=== PATIENT | female | born 1930 | race Caucasian/White ===

== ENCOUNTER 2017-08-02 14:31 | Inpatient (IN) | payer MEDICARE, OTHER ==
[~2017-08-02] VITALS: Ht 154.9 cm; Wt 53.5 kg
--- NOTE | 2017-08-02 14:40 | NUR ---
[id number] FROM HOME FOR ABD PAIN W/ NAUSEA X 0900AM. PATIENT RECEIBED AWAKE AND ALERT. APPEARS IN NO DISTRESS. RESPIRATION EVEN AND UNLABORED. SKIN IS WARM TO TOUCH AND NON DIAPHORETIC. AFEBRILE. GOWNED PT AND PLACED ON TELE MONITOR.
[2017-08-02] MEDS ORDERED: IV NS 0.9% 1,000 ML BAG IV ONE (15:00)
[2017-08-02 15:10] LABS: BASOPHILS # (AUTO) 0.1 /CMM (0.0-0.2); BASOPHILS % (AUTO) 0.9 % (0.0-2.0); EOSINOPHILS # (AUTO) 0.1 /CMM (0.0-0.7); EOSINOPHILS % (AUTO) 0.9 % (0.0-6.0); HEMATOCRIT 34 % (33-45); HEMOGLOBIN 11.7 g/dL (11.5-14.8); LYMPHOCYTES # (AUTO) 1.4 /CMM (0.8-4.8); MEAN CORPUSCULAR HEMOGLOBIN 30 PG (26.0-33.0); MEAN CORPUSCULAR HGB CONC 35 g/dl (31.0-36.0); MEAN CORPUSCULAR VOLUME 85 fL (82-100); MONOCYTES # (AUTO) 0.4 /CMM (0.1-1.30); NEUTROPHILS # (AUTO) 5.2 /CMM (1.8-8.9); NEUTROPHILS % (AUTO) 73.2 % (43.0-81.0); PLATELET COUNT (AUTO) 384 /CMM (150-450); RDW COEFFICIENT OF VARIATION 13.3 (11.5-15.0); RED BLOOD CELL COUNT(AUTO) 3.96 MIL/uL (4.0-5.2); WHITE BLOOD COUNT (AUTO) 7.2 K/uL (4.3-11.0)
[2017-08-02 15:20] LABS: CALCIUM, SERUM 9.5 mg/dL (8.5-10.1); CARBON DIOXIDE 26 mmol/L (21-32); CHLORIDE 103 mmol/L (98-107); CREATININE 1.3 mg/dL (0.6-1.3); GLUCOSE 128 mg/dL (74-106); POTASSIUM 4.4 mmol/L (3.5-5.1); SODIUM SERUM 136 mmol/L (136-145); UREA NITROGEN, BLOOD 22 mg/dL (7-18)
[2017-08-02 15:23] LABS: INR 0.99 (0.85-1.15)
[2017-08-02 15:26] LABS: ALANINE AMINOTRANSFERASE 17 U/L (12-78); ALBUMIN 3.2 g/dL (3.4-5.0); ALKALINE PHOSPHATASE 108 U/L (46-116); ASPARTATE AMINOTRANSFERASE 20 U/L (15-37); BILIRUBIN,DIRECT 0.1 mg/dL (0.0-0.2); BILIRUBIN,TOTAL 0.3 mg/dL (0.2-1.0)
[2017-08-02 15:27] LABS: TROPONIN I < 0.017 ng/mL (0.00-0.056)
[2017-08-02] MEDS ORDERED: TRAV5DRO EACHEYE (16:07)
[2017-08-02] MEDS ORDERED: DORZ10DR8 EACHEYE (16:07)
[2017-08-02] MEDS ORDERED: ATOR20TA PO (16:07)
[2017-08-02] MEDS ORDERED: AMLO10TA2 PO (16:07)
[2017-08-02] MEDS ORDERED: LISI10TA5 PO (16:07)
--- NOTE | 2017-08-02 17:19 | NUR ---
PAGED GRINDER DRESSER PANEL
[2017-08-02 17:27] LABS: APPEARANCE,URINE Slightly Cloudy (CLEAR); BILIRUBIN,URINE Negative (NEGATIVE); BLOOD, URINE Negative Ery/uL (NEGATIVE); COLOR,URINE Yellow (YELLOW); KETONES,URINE Negative (NEGATIVE); LEUKOCYTE ESTERASE ,URINE Small (NEGATIVE); NITRITE, URINE Negative (NEGATIVE); PH,URINE 5.5 (5.0-8.0); PROTEIN,URINE Negative (NEGATIVE); UGLUCOSE Negative (NEGATIVE); UROBILINOGEN,URINE 0.2 EU/dL (0.2)
--- NOTE | 2017-08-02 17:41 | NUR ---
PATIENT AFEBRILE. NO CHILLS NOTED. VSS
[2017-08-02] MEDS ORDERED: ALBUTEROL FS 2.5 MG/0.5 ML VIAL.NEB NEB PRN (18:00)
[2017-08-02] MEDS ORDERED: MAGNESIUM HYDROXIDE 30 ML UDC PO PRN (18:00)
[2017-08-02] MEDS ORDERED: Z GUARD REMEDY 2 OZ OINT TP PRN (18:00)
[2017-08-02] MEDS ORDERED: ZOLPIDEM TARTRATE 5 MG TABLET PO PRN (18:00)
[2017-08-02] MEDS ORDERED: HYDROCODONE/APAP 5/325MG 1 EACH TABLET PO PRN (18:00)
[2017-08-02] MEDS ORDERED: MAG HYDROX/AL HYDROX/SIMETH 30 ML UDC PO PRN (18:00)
[2017-08-02] MEDS ORDERED: ACETAMINOPHEN 325 MG TABLET PO PRN (18:00)
[2017-08-02] MEDS ORDERED: ONDANSETRON HCL/PF 4 MG/2 ML VIAL IVP PRN (18:00)
--- NOTE | 2017-08-02 18:15 | NUR ---
TELE ADMIT FROM ER AFTER REPORT RECEIVED FROM GRANT GARCIA. PATIENT ORIENTED TO PRIMARY RN, UNIT, ROOM, BED, AND UNIT POLICIES REGARDING PATIENT CARE AND VISITING HOURS. PATIENT NOW ON CONTINUOUS TELEMETRY MONITORING. READING ON ARRIVAL IS SR 91. PATIENT WEIGHED BY BEDSCALE AND ENCOURAGED TO CALL IF THEY NEED SOMETHING. ALL QUESTIONS AND CONCERNS ADDRESSED. PATIENT VERBALIZED UNDERSTANDING.
--- NOTE | 2017-08-02 19:30 | NUR ---
SUPERVISOR LAMP SHADES NOTES, PATIENT ALER AND ORIENTED, ABLE TO VERBALIZED NEEDS AND CONCERNS, BREATHING EVEN AND UNLABORED, NO S/S OF ANY PAIN OR DISCOMFORT AT THIS TIME, DAUGHTER AND GRANDDAUGHTER AT BEDSIDE AT THIS TIME, PIV NOTED IN LEFT AC IVF INFUSING WELL AND PATIENT TOLERATED WELL, NO S/S OF ANY INFILTRATION OR ABNORMALITY AT THIS TIME, BED LOCKED AND IN LOWEST POSITION, CALL LIGHT W/I REACH, USES RESTROOM FRO ELIMINATION, ASSISTANCE PROVIDED AT ALL TIME. WILL CONTINUE TO MONITOR CLOSELY.
--- NOTE | 2017-08-02 19:35 | NUR ---
CHANGE OF SHIFT REPORT PT RESTING COMFORTABLY IN BED. NO S/S OR C/O PAIN OR DISTRESS NOTED. SIDE RAILS UP X2, CALL LIGHT LEFT WITHIN REACH. PT KEPT CLEAN DRY, AND COMFORTABLE. NO SIGNIFICANT CHANGES SINCE ADMISSION. REPORT GIVEN TO DIAMOND GARCIA.
[2017-08-02 20:00] VITALS: BP 108/50
[2017-08-02] MEDS: ATORVASTATIN 10 MG TABLET PO SCH (21:50)
[2017-08-02] MEDS: LATANOPROST EYE DROP 0.005% 2.5 ML BOTTLE EACHEYE SCH (21:51)
[2017-08-02] MEDS: MECLIZINE HCL 12.5 MG TABLET PO SCH (21:54)
[2017-08-02 22:10] LABS: BACTERIA,URINE Moderate /HPF (None Seen); RBC,URINE 0-2 /HPF (0-2); SQUAMOUS EPITHELIAL CELL,UR Few /HPF (None Seen)
[2017-08-03] VITALS: BP 105/38
[2017-08-03 04:00] VITALS: BP 107/51
[2017-08-03] MEDS: MECLIZINE HCL 12.5 MG TABLET PO SCH ×3 (05:18→21:15)
--- NOTE | 2017-08-03 06:40 | NUR ---
HYDRO STATION SUPERVISOR CLOSING NOTES, PATIENT AWAKE, ALERT AND ORIENTED ABLE TO VERBALIZED CONCERNS AND NEEDS, BREATHING EVEN AND UNLABORED, NO S/S OF DISCOMFORT OF ANY PAIN AT THIS TIME, PIV LINE IN RIGHT HAND, INTACT AND PATENT, IVF INFUSING WELL AND PATIWENT TOLERATED WELL, NO S/S OF INFILTRATION, INDEPENDENT WITH REPOSITION, WILL ENDORSE CONTINUITY OF CARE TO NEXT NURSE.
--- NOTE | 2017-08-03 07:25 | NUR ---
ECHOCARDIOLOGIST NOTE: RECEIVED PATIENT IN BED, AWAKE, ALERT AND VERBALLY RESPONSIVE. DENIED PAIN. RESPIRATION EVEN AND UNLABORED SATURATING WELL 96% ON RA. ON TUBE COVERER SR= 68. (R) HAND IV LINE PATENT AND INTACT INFUSING W/ NS 0.9% @75CC/HR. AWARE ABOUT PATIENT'S SENSITIVITY WITH TAPES. DENIED FEELING DIZZY AT THIS TIME. BED ALARM AND LOCKED AT ALL TIMES. CALL LIGHT WITHIN REACH. NEEDS ANTICIPATED.
[2017-08-03 07:32] LABS: BASOPHILS # (AUTO) 0.1 /CMM (0.0-0.2); BASOPHILS % (AUTO) 0.8 % (0.0-2.0); EOSINOPHILS # (AUTO) 0.1 /CMM (0.0-0.7); EOSINOPHILS % (AUTO) 1.3 % (0.0-6.0); HEMATOCRIT 31 % (33-45); HEMOGLOBIN 10.5 g/dL (11.5-14.8); LYMPHOCYTES % (AUTO) 14.4 % (20.0-44.0); MEAN CORPUSCULAR HEMOGLOBIN 29 PG (26.0-33.0); MEAN CORPUSCULAR HGB CONC 34 g/dl (31.0-36.0); MEAN CORPUSCULAR VOLUME 86 fL (82-100); MONOCYTES # (AUTO) 0.5 /CMM (0.1-1.30); MONOCYTES % (AUTO) 7.2 % (2.0-12.0); NEUTROPHILS # (AUTO) 5.2 /CMM (1.8-8.9); NEUTROPHILS % (AUTO) 76.3 % (43.0-81.0); PLATELET COUNT (AUTO) 296 /CMM (150-450); RDW COEFFICIENT OF VARIATION 13.9 (11.5-15.0); RED BLOOD CELL COUNT(AUTO) 3.57 MIL/uL (4.0-5.2); WHITE BLOOD COUNT (AUTO) 6.8 K/uL (4.3-11.0)
[2017-08-03 07:47] LABS: CHOLESTEROL 112 mg/dL (<200); CREATINE KINASE MB 0.8 ng/mL (0-3.6); HDL CHOLESTEROL 51 mg/dL (40-60); LDL 50 mg/dL (0-99); THYROID STIMULATING HORMONE 2.346 uIU/mL (0.358-3.74); TRIGLYCERIDES 85 mg/dL (30-150)
[2017-08-03 07:52] LABS: ALANINE AMINOTRANSFERASE 20 U/L (12-78); ALBUMIN 2.8 g/dL (3.4-5.0); ALKALINE PHOSPHATASE 96 U/L (46-116); ASPARTATE AMINOTRANSFERASE 25 U/L (15-37); BILIRUBIN,TOTAL 0.4 mg/dL (0.2-1.0); CARBON DIOXIDE 25 mmol/L (21-32); CHLORIDE 111 mmol/L (98-107); CREATININE 0.9 mg/dL (0.6-1.3); GLUCOSE 94 mg/dL (74-106); MAGNESIUM 1.7 mg/dL (1.8-2.4); PHOSPHORUS 3.3 mg/dL (2.5-4.9); POTASSIUM 4.8 mmol/L (3.5-5.1); SODIUM SERUM 143 mmol/L (136-145); TOTAL PROTEIN, SERUM 6.4 g/dL (6.4-8.2); UREA NITROGEN, BLOOD 15 mg/dL (7-18)
[2017-08-03 07:56] LABS: IRON, SERUM 61 ug/dl (50-175); TOTAL IRON BINDING CAPACITY 235 ug/dl (250-450)
[2017-08-03 07:58] LABS: INR 1.02 (0.87-1.13)
[2017-08-03 08:00] VITALS: BP 118/47
[2017-08-03] MEDS: PANTOPRAZOLE 40 MG TABLET.DR PO SCH (08:25)
[2017-08-03] MEDS: DORZOLAMIDE OPTH 2% 10 ML BOTTLE EACHEYE SCH ×2 (08:25→17:38)
[2017-08-03] MEDS: AMLODIPINE BESYLATE 10 MG TABLET PO SCH (08:39)
[2017-08-03] MEDS: LISINOPRIL (10MG) 10 MG TABLET PO SCH (09:52)
[2017-08-03] MEDS: Magnesium 1GM/D5W 100ML PREMIX 100 ML IV SCH ×2 (10:32→11:51)
[2017-08-03 12:00] VITALS: BP 111/41
[2017-08-03] MEDS: IV NS 0.9% 1,000 ML IV PRN (12:58)
[2017-08-03] MEDS ORDERED: Magnesium 1GM/D5W 100ML PREMIX 100 ML IV SCH (16:00)
[2017-08-03 20:00] VITALS: BP 127/54
[2017-08-03] MEDS: ATORVASTATIN 10 MG TABLET PO SCH (21:16)
[2017-08-03] MEDS: LATANOPROST EYE DROP 0.005% 2.5 ML BOTTLE EACHEYE SCH (21:16)
[2017-08-04 04:00] VITALS: BP 118/56
[2017-08-04] MEDS: MECLIZINE HCL 12.5 MG TABLET PO SCH ×3 (05:30→21:52)
[2017-08-04] MEDS: IV NS 0.9% 1,000 ML IV PRN (06:03)
[2017-08-04 06:23] LABS: CALCIUM, SERUM 8.7 mg/dL (8.5-10.1); CARBON DIOXIDE 26 mmol/L (21-32); CHLORIDE 108 mmol/L (98-107); CREATININE 0.8 mg/dL (0.6-1.3); GLUCOSE 87 mg/dL (74-106); PHOSPHORUS 3.4 mg/dL (2.5-4.9); POTASSIUM 4.9 mmol/L (3.5-5.1); SODIUM SERUM 141 mmol/L (136-145); UREA NITROGEN, BLOOD 11 mg/dL (7-18)
[2017-08-04 06:24] LABS: BASOPHILS % (AUTO) 1.1 % (0.0-2.0); EOSINOPHILS # (AUTO) 0.1 /CMM (0.0-0.7); EOSINOPHILS % (AUTO) 3.4 % (0.0-6.0); HEMATOCRIT 30 % (33-45); HEMOGLOBIN 10.1 g/dL (11.5-14.8); LYMPHOCYTES # (AUTO) 1.2 /CMM (0.8-4.8); LYMPHOCYTES % (AUTO) 30.4 % (20.0-44.0); MEAN CORPUSCULAR HEMOGLOBIN 29 PG (26.0-33.0); MEAN CORPUSCULAR HGB CONC 34 g/dl (31.0-36.0); MEAN CORPUSCULAR VOLUME 86 fL (82-100); MONOCYTES # (AUTO) 0.5 /CMM (0.1-1.30); MONOCYTES % (AUTO) 11.4 % (2.0-12.0); NEUTROPHILS # (AUTO) 2.2 /CMM (1.8-8.9); NEUTROPHILS % (AUTO) 53.7 % (43.0-81.0); PLATELET COUNT (AUTO) 278 /CMM (150-450); RDW COEFFICIENT OF VARIATION 14.4 (11.5-15.0); RED BLOOD CELL COUNT(AUTO) 3.43 MIL/uL (4.0-5.2)
[2017-08-04 07:06] VITALS: BP 105/48
--- NOTE | 2017-08-04 07:35 | NUR ---
RN MED-SURG NOTE: RECEIVED PATIENT IN BED, AWAKE, ALERT AND ABLE TO MAKE NEEDS KNOWN. NO SOB. SATURATING WELL AT RA 97%. (L) FA IV LINE NOTED INTACT AND PATENT INFUSING NS @75CC/HR. CALL LIGHT WITHIN REACH. NEEDS ANTICIPATED.
[2017-08-04 08:00] VITALS: BP 117/51
[2017-08-04] MEDS: PANTOPRAZOLE 40 MG TABLET.DR PO SCH (08:29)
[2017-08-04] MEDS: DORZOLAMIDE OPTH 2% 10 ML BOTTLE EACHEYE SCH ×2 (09:12→17:05)
[2017-08-04] MEDS: LISINOPRIL (10MG) 10 MG TABLET PO SCH (09:12)
[2017-08-04] MEDS: AMLODIPINE BESYLATE 10 MG TABLET PO SCH (09:13)
--- NOTE | 2017-08-04 09:18 | NUR ---
RN MED-SURG NOTE: SEEN BY DR. MCLEAN (NEUROLOGIST) AND HAD A BEDSIDE INTERVIEW W/ THE PATIENT. PATIENT STATED FEELING SO MUCH BETTER AND NO DIZZINESS. MD WITH NO NEW ORDER AT THIS TIME.
--- NOTE | 2017-08-04 09:44 | NUR ---
RN MED-SURG NOTE: RECEIVED A CALL FROM HARDIK FROM RADIOLOGY DEPT. AND ACCORDING TO HER THE PATIENT IS SCHEDULE FOR CT OF THE HEAD W/O CONTRAST TODAY.
--- NOTE | 2017-08-04 12:31 | NUR ---
RN MED-SURG NOTE: PATIENT WAS BROUGHT TO RADIOLOGY DEPT. FOR THE CT HEAD W/O CONTRAST. TRANSPORTED VIA WHEELCHAIR. ON STABLE CONDITION. DENIED ANY PAIN. PT AWARE OF THE TEST.
--- NOTE | 2017-08-04 12:45 | NUR ---
RN MED-SURG NOTE: PATIENT RETURNED TO THE UNIT FROM RADIOLOGY DEPT. VIA WHEELCHAIR. REMAINED ON STABLE CONDITION.
--- NOTE | 2017-08-04 15:52 | NUR ---
RN MED-SURG NOTE: INFORMED DR. RUVALCABA RE: THE PATIENT'S REQUEST TO HAVE A SOFT DIET DUE TO HER DENTURE PROBLEM WHEN SHE EATS. MD WITH NEW ORDER FOR MECHANICAL SOFT DIET. PATIENT AWARE.
[2017-08-04 16:00] VITALS: BP 114/55
--- NOTE | 2017-08-04 19:39 | NUR ---
RN MED-SURG NOTE: PATIENT IN BED, AWAKE, ALERT AND VERBALLY RESPONSIVE. RESPIRATION EVEN AND UNLABORED. SATURATING WELL AT RA 98%. (L) UA MIDLINE NOTED INTACT AND PATENT INFUSING NS @75CC/HR. CALL LIGHT WITHIN REACH. NEEDS ANTICIPATED. REPORT GIVEN TO RADHA BHATIA FOR CONTINUITY OF CARE.
[2017-08-04 20:00] VITALS: BP 105/48
[2017-08-04] MEDS: ATORVASTATIN 10 MG TABLET PO SCH (21:52)
[2017-08-04] MEDS: LATANOPROST EYE DROP 0.005% 2.5 ML BOTTLE EACHEYE SCH (21:52)
--- NOTE | 2017-08-05 01:10 | NUR ---
RN NOTES RECEIVED PATIENT IN BED ASLEEP, EASILY AROUSABLE. NO SIGNS OF ACUTE DISTRESS NOTED. NO SIGNS OF PAIN NOTED. IV SITE PATENT, INTACT; IVF INFUSING ORDERED. ON LOW BED WITH BILATERAL UPPER SIDE RAILS UP. CALL BARTHOLOMEW WITHIN EASY REACH . WILL CONTINUE TO MONITOR.
[2017-08-05] MEDS: MECLIZINE HCL 12.5 MG TABLET PO SCH ×2 (04:28→13:33)
--- NOTE | 2017-08-05 06:02 | NUR ---
WILL CONTINUE TO MONITOR
--- NOTE | 2017-08-05 06:04 | NUR ---
RN NOTES PATIENT ASLEEP, EASILY AROUSABLE. RESPIRATIONS EVEN. NO SIGNS OF PAIN NOTED. DUE MED GIVEN WITH NO ASE NOTED. NEEDS ATTENDED. SAFETY PRECAUTIONS AND COMFORT MEASURES IN PLACE. WILL GIVE REPORT TO DAY SHIFT FOR CONTINUITY OF CARE.
[2017-08-05 07:22] LABS: CALCIUM, SERUM 8.8 mg/dL (8.5-10.1); CARBON DIOXIDE 25 mmol/L (21-32); CHLORIDE 109 mmol/L (98-107); CREATININE 0.8 mg/dL (0.6-1.3); GLUCOSE 91 mg/dL (74-106); MAGNESIUM 1.6 mg/dL (1.8-2.4); PHOSPHORUS 3.8 mg/dL (2.5-4.9); POTASSIUM 4.2 mmol/L (3.5-5.1); SODIUM SERUM 141 mmol/L (136-145); UREA NITROGEN, BLOOD 7 mg/dL (7-18)
[2017-08-05] MEDS: PANTOPRAZOLE 40 MG TABLET.DR PO SCH (07:30)
[2017-08-05 07:41] LABS: BASOPHILS % (AUTO) 1.1 % (0.0-2.0); EOSINOPHILS # (AUTO) 0.2 /CMM (0.0-0.7); EOSINOPHILS % (AUTO) 4.6 % (0.0-6.0); HEMATOCRIT 30 % (33-45); HEMOGLOBIN 10.2 g/dL (11.5-14.8); LYMPHOCYTES # (AUTO) 1.2 /CMM (0.8-4.8); LYMPHOCYTES % (AUTO) 31.1 % (20.0-44.0); MEAN CORPUSCULAR HEMOGLOBIN 29 PG (26.0-33.0); MEAN CORPUSCULAR HGB CONC 35 g/dl (31.0-36.0); MEAN CORPUSCULAR VOLUME 85 fL (82-100); MONOCYTES # (AUTO) 0.4 /CMM (0.1-1.30); MONOCYTES % (AUTO) 10.9 % (2.0-12.0); NEUTROPHILS # (AUTO) 2.2 /CMM (1.8-8.9); NEUTROPHILS % (AUTO) 52.3 % (43.0-81.0); PLATELET COUNT (AUTO) 280 /CMM (150-450); RDW COEFFICIENT OF VARIATION 13.4 (11.5-15.0)
[2017-08-05 08:00] VITALS: BP 123/55
[2017-08-05 08:24] VITALS: BP 123/55
[2017-08-05] MEDS: LISINOPRIL (10MG) 10 MG TABLET PO SCH (08:58)
[2017-08-05 08:59] VITALS: BP 123/55
[2017-08-05] MEDS: AMLODIPINE BESYLATE 10 MG TABLET PO SCH (08:59)
[2017-08-05] MEDS: DORZOLAMIDE OPTH 2% 10 ML BOTTLE EACHEYE SCH (09:00)
[2017-08-05] MEDS: Magnesium 1GM/D5W 100ML PREMIX 100 ML IV SCH ×2 (11:33→12:27)
== END 2017-08-05 16:42 | disposition home health service (06) | DRG 149 ==
LOC: ER 14:34 → TELE1 17:04 → MEDSG1 08-03 12:11
PROVIDERS: ADMIT Internal Medicine; ATTEND Internal Medicine
PROC: 05H633Z Insertion of Infusion Device into Left Subclavian Vein, Percutaneous Approach (ICD-10-PCS; principal; 2017-08-04)
DX: H81.10 Benign paroxysmal vertigo, unspecified ear (principal); I95.9 Hypotension, unspecified; D63.8 Anemia in other chronic diseases classified elsewhere; E78.5 Hyperlipidemia, unspecified; I10 Essential (primary) hypertension; H40.9 Unspecified glaucoma; J45.909 Unspecified asthma, uncomplicated; Z90.710 Acquired absence of both cervix and uterus; R55 Syncope and collapse
CPT/HCPCS: 36415; 36569; 70450-TC; 71045-TC; 80048-TC; 80053-TC; 80061-TC; 80076-TC; 81000-TC; 82553-TC; 82746; 83540-TC; 83605-TC; 83735-TC; 84100-TC; 84443-TC; 84484-TC; 85025-TC; 85730-TC; 87040-TC; 87081-TC; 87086-TC; 93307-TC; 97110-TC; 97116-TC; 97530-TC; A4606; J3475; J7030; J8597; Z7610